=== PATIENT | male | born 1950 | race Caucasian/White ===

== ENCOUNTER → 2019-03-14 | Outpatient (CLI) | payer BC, MEDICARE ==
[~2019-03-14] VITALS: Ht 177.8 cm; Wt 113.4 kg
--- NOTE | 2019-03-14 11:57 | Diagnostic Imaging Report ---
INDICATION: Left thyroid nodule. FINDINGS: Sonographic guidance was provided for Dr. Riley for a left thyroid nodule FNA. Images demonstrate a left thyroid nodule. A total of 3 passes were made. IMPRESSION: Sonographic guidance for Dr. Riley for left thyroid nodule FNA. Dictated by: Dictated on workstation # [id number]
== END ==
LOC: RAD 10:20
PROVIDERS: ATTEND Otolaryngology Otolaryngology/Facial Plastic Surgery
DX: E04.1 Nontoxic single thyroid nodule (principal)

== ENCOUNTER 2020-07-14 08:58 | Outpatient (RCR) | payer MEDICARE, OTHER ==
[~2020-07-14] VITALS: Ht 180 cm; Wt 117.9 kg
[2020-07-14 10:09] VITALS: BP 137/84
[2020-07-14 10:10] LABS: BASOPHILS # (AUTO) 0.1 10^3/uL (0.0-0.1); BASOPHILS % (AUTO) 1 % (0-10); EOSINOPHILS # (AUTO) 0.2 10^3/uL (0.0-0.3); EOSINOPHILS % (AUTO) 4 % (0-10); HEMATOCRIT 50 % (40-54); HEMOGLOBIN 16.3 g/dL (13.3-17.7); LYMPHOCYTES # (AUTO) 1.7 10^3/uL (1.0-4.0); LYMPHOCYTES % (AUTO) 27 % (12-44); MEAN CORPUSCULAR HEMOGLOBIN 27 pg (25-34); MEAN CORPUSCULAR HGB CONC 33 g/dL (32-36); MEAN CORPUSCULAR VOLUME 82 fL (80-99); MEAN PLATELET VOLUME 9.1 fL (9.0-12.2); MONOCYTES % (AUTO) 15 % (0-12); NEUTROPHILS # (AUTO) 3.2 10^3/uL (1.8-7.8); NEUTROPHILS % (AUTO) 53 % (42-75); PLATELET COUNT 246 10^3/uL (130-400); WHITE BLOOD COUNT 6.2 10^3/uL (4.3-11.0)
[2020-07-14] MEDS ORDERED: CHOL10002 PO (10:23)
[2020-07-14] MEDS ORDERED: MELO15TA39 PO (10:23)
[2020-07-14] MEDS ORDERED: CYAN100088 PO (10:23)
[2020-07-14] MEDS ORDERED: ASPI-999 PO (10:23)
[2020-07-14] MEDS ORDERED: GLUC1CAP37 PO (10:23)
[2020-07-14] MEDS ORDERED: KRIL500C PO (10:23)
[2020-07-14] MEDS ORDERED: LISI10TA2 PO (10:23)
[2020-07-14] MEDS ORDERED: MULT-1056 PO (10:23)
[2020-07-14] MEDS ORDERED: ROSU5TAB13 PO (10:23)
[2020-07-14] MEDS ORDERED: HYDR25TA4 PO (10:23)
[2020-07-14] MEDS ORDERED: OMEP20TA7 PO (10:23)
[2020-07-14] MEDS ORDERED: ASCO500C17 PO (10:23)
[2020-07-14 10:34] LABS: CALCIUM 9.8 MG/DL (8.5-10.1); CREATININE SERUM 1.64 MG/DL (0.60-1.30); POTASSIUM 3.5 MMOL/L (3.6-5.0)
== END 2020-07-14 13:38 | disposition home or self-care (01) ==
LOC: PREOP 08:58
PROVIDERS: ATTEND Otolaryngology Otolaryngology/Facial Plastic Surgery
DX: Z01.812 Encounter for preprocedural laboratory examination (principal); Z11.2 Encounter for screening for other bacterial diseases; D11.0 Benign neoplasm of parotid gland
CPT/HCPCS: 36415; 80048; 85025; 87081; 93005

== ENCOUNTER → 2020-07-14 | Outpatient (CLI) | payer BC, MEDICARE ==
[~2020-07-14] MED LIST: ASCO500C17 PO; ASPI-999 PO; CHOL10002 PO; CYAN100088 PO; GLUC1CAP37 PO; HYDR25TA4 PO; KRIL500C PO; LISI10TA2 PO; MELO15TA39 PO; MULT-1056 PO; OMEP20TA7 PO; ROSU5TAB13 PO
== END ==
LOC: LABNPT 05:56
PROVIDERS: ATTEND Otolaryngology Otolaryngology/Facial Plastic Surgery
DX: Z01.812 Encounter for preprocedural laboratory examination (principal); D11.0 Benign neoplasm of parotid gland; Z20.828 Contact with and (suspected) exposure to other viral communicable diseases
CPT/HCPCS: 87635

== ENCOUNTER 2020-07-16 06:45 | Day surgery (SDC) | payer MEDICARE, OTHER ==
[2020-07-16] VITALS (11 sets, daily range): BP systolic 101–149; BP diastolic 57–102
[~2020-07-16] VITALS: Ht 180 cm; Wt 117.9 kg
[2020-07-16] MEDS ORDERED: MUPIROCIN 2% OINT 22 GM (BACTROBAN) TUBE ONE (06:56)
[2020-07-16] MEDS ORDERED: LIDOCAINE/EPI 1%-1:100,000 (XYLOCAINE) 20ML ONE (06:56)
--- NOTE | 2020-07-16 07:01 | Progress Note-Pre Operative ---
Pre-Operative Progress Note H&P Reviewed The H&P was reviewed, patient examined and no changes noted. Date Seen by Provider: Jul 16, 2020 Time Seen by Provider: 06:45 Date H&P Reviewed: Jul 16, 2020 Time H&P Reviewed: 06:45 Pre-Operative Diagnosis: Right Parotid Mass SOFIA MCGUIRE MD Jul 16, 2020 07:01
[2020-07-16] MEDS: LACTATED RINGERS 1,000 ML IV PRN ×2 (07:05→08:25)
[2020-07-16] MEDS ORDERED: proPOfol 200 MG/20 ML (DIPRIVAN) VIAL IV ONE ×2 (07:13→08:59)
[2020-07-16] MEDS ORDERED: LIDOCAINE PF 2% 5 ML (XYLOCAINE) VIAL ONE (07:13)
[2020-07-16] MEDS ORDERED: ONDANSETRON 4 MG/2 ML (SDV) Z0FRAN ONE (07:13)
[2020-07-16] MEDS ORDERED: SEVOFLURANE (ULTANE) 15 ML INHAL SOLN ONE ×9 (07:14→10:43)
[2020-07-16] MEDS ORDERED: fentaNYL INJECTION 100 MCG/2 ML AMP ONE (07:14)
[2020-07-16] MEDS ORDERED: MIDAZOLAM 2 MG/2 ML (VERSED) VIAL ONE (07:14)
[2020-07-16] MEDS ORDERED: ROCURONIUM 10 MG/ML 5 ML SYRINGE IV ONE (07:14)
[2020-07-16] MEDS: ceFAZolin INJECTION 1,000 MG ONE ×2 (07:43→08:02)
[2020-07-16] MEDS: WATER (STERILE) FOR INJECTION 10 ML ONE ×2 (07:43→08:02)
[2020-07-16] MEDS ORDERED: PHENYLEPHRINE 100 MCG/ML 10 ML (ANESTHESIA) SYR ONE (08:11)
[2020-07-16] MEDS ORDERED: HYDROmorphone 2 MG/ML VIAL (DILAUDID) ONE (08:57)
[2020-07-16] MEDS ORDERED: BSS 15 ML ONE (09:45)
--- NOTE | 2020-07-16 10:26 | Progress Note-Post Operative ---
Post-Operative Progess Note Surgeon (s)/Anti [employer]ile[employer] (s) Surgeon SOFIA MCGUIRE MD [employer] n/a Pre-Operative Diagnosis Right Parotid Mass Post-Operative Diagnosis same Post-Op Procedure Note Date of Procedure: Jul 16, 2020 Name of Procedure Performed: Right Parotidectomy with Preservation of Facial Nerve Description & Findings Description and Findings: n/a Anesthesia Type get Estimated Blood Loss minimal Packing none. Specimen(s) collected/removed right parotid mass/gland SOFIA MCGUIRE MD Jul 16, 2020 10:26
[2020-07-16] MEDS ORDERED: HYDROcodone/APAP 5 MG/325 MG (LORTAB) TAB PO PRN (10:30)
[2020-07-16] MEDS ORDERED: ACETAMINOPHEN 325 MG TABLET PO PRN (10:30)
[2020-07-16] MEDS ORDERED: LABETALOL HCL 20 MG/4 ML VIAL ONE (11:52)
[2020-07-16] MEDS: D5 1/2 NS W/KCL 20 MEQ/L 1,000 ML IV SCH ×2 (12:31→14:32)
--- NOTE | 2020-07-16 13:30 | Anesthesia-General Post-Op ---
General Patient Condition Mental Status/LOC: Same as Preop Cardiovascular: Satisfactory Nausea/Vomiting: Absent Respiratory: Satisfactory Pain: Controlled Complications: Absent Post Op Complications Complications None Follow Up Care/Instructions Patient Instructions None needed. Anesthesia/Patient Condition Patient Condition Patient is doing well, no complaints, stable vital signs, no apparent adverse anesthesia problems. No complications reported per nursing. ZAYNAB PINO CRNA Jul 16, 2020 13:30
[2020-07-16] MEDS ORDERED: LABETALOL HCL 20 MG/4 ML VIAL IV NR (13:45)
[2020-07-16] MEDS: HYDROcodone/APAP 5 MG/325 MG (LORTAB) TAB PO PRN ×2 (14:33→22:39)
[2020-07-16] MEDS ORDERED: FLU QUAD HIGH DOSE 240 MCG/0.7 ML 2020-21 (FLUZONE) IM ONE (15:45)
[2020-07-17 03:14] VITALS: BP 109/64
--- NOTE | 2020-07-17 07:07 | Progress Note ---
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
[2020-07-17 08:00] VITALS: BP 121/64
[2020-07-17] MEDS ORDERED: ACHD5005 PO (08:47)
[2020-07-17] MEDS ORDERED: MUPIROCIN 2% OINT 22 GM (BACTROBAN) TUBE TOP SCH ×2 (09:00)
--- NOTE | 2020-07-17 09:15 | NUR ---
flu vaccine given, in left deltoid, dressing changed to right neck site where eileen drain removed, serosanguineous drainage, incision neck and around right ear without drainage, luciano intact, denies pain or sob, IV removed, site without redness or swelling, discharge instructions given, prescription given, verbalized understanding of follow up appointment, dismissed per w/c to car.
[2020-07-17 09:28] VITALS: BP 121/64
== END 2020-07-17 09:37 | disposition home or self-care (01) ==
LOC: SDC 06:45 → 4TH 12:31 → SDC 07-17 09:37
PROVIDERS: ATTEND Otolaryngology Otolaryngology/Facial Plastic Surgery
DX: D11.0 Benign neoplasm of parotid gland (principal); I10 Essential (primary) hypertension; G47.33 Obstructive sleep apnea (adult) (pediatric); K21.9 Gastro-esophageal reflux disease without esophagitis; M06.9 Rheumatoid arthritis, unspecified; Z79.899 Other long term (current) drug therapy; Z79.82 Long term (current) use of aspirin
CPT/HCPCS: 90662